=== PATIENT | female | born 1965 | race Caucasian/White ===

== ENCOUNTER → 2017-08-16 | Outpatient (CLI) | payer OTHER | LOC: FIMAGING 11:37 | PROVIDERS: ATTEND Internal Medicine Hematology & Oncology | DX: M25.551 Pain in right hip (principal); C81.90 Hodgkin lymphoma, unspecified, unspecified site; Z85.3 Personal history of malignant neoplasm of breast | CPT/HCPCS: 72080; 78306; A9503 ==

== ENCOUNTER 2019-01-30 18:19 | Inpatient (IN) | payer OTHER ==
[2019-01-30] MEDS ORDERED: ONDANSETRON 4 MG/2 ML VIAL IVP ONE (18:52)
[2019-01-30] MEDS ORDERED: IOPAMIDOL (ISOVUE 370) 100 ML BTL IV ONE (18:52)
--- NOTE | 2019-01-30 18:56 | EDPHY ---
H & P Stated Complaint: Recent subarachnoid bleed (01/27/19), increasing headache. Time Seen by Provider: 01/30/19 18:28 HPI/ROS: CHIEF COMPLAINT: Recurrent severe headache, recently diagnosed with non aneurysmal subarachnoid hemorrhage HISTORY OF PRESENT ILLNESS: The patient presents to the ED with recurrent severe headache that began several hours ago. The patient was diagnosed with a subarachnoid hemorrhage over the weekend while doing it bicycle race in [place]. She reportedly went to an emergency department had a CT and CT angiography which demonstrated subarachnoid hemorrhage without an aneurysmal source. The patient ultimately was discharged home with pain medications and advised to follow up when she returns to [place]. Today the patient was given a presentation when she developed recurrent severe headache with associated nausea. The patient denies any focal numbness or weakness. She currently rates her headache as a 6/10. She did take some morphine IR prior to arrival. The patient does not have a copy of the imaging studies performed in [place]. REVIEW OF SYSTEMS: A comprehensive 10 point review of systems is otherwise negative aside from elements mentioned in the history of present illness. Source: Patient Exam Limitations: No limitations - Personal History Current Tetanus Diphtheria and Acellular Pertussis (TDAP): Yes - Medical/Surgical History Hx Chronic Respiratory Disease: No Hx Diabetes: No Hx Cardiac Disease: No Hx Renal Disease: No Hx Cirrhosis: No Hx Alcoholism: No Hx HIV/AIDS: No Hx Splenectomy or Spleen Trauma: No Other PMH: Denies. - Social History Smoking Status: Never smoked - Physical Exam Exam: General Appearance: Alert, appears uncomfortable Eyes: Pupils equal and round no pallor or injection ENT, Mouth: Mucous membranes moist Respiratory: There are no retractions, lungs are clear to auscultation Cardiovascular: Regular rate and rhythm Gastrointestinal: Abdomen is soft and nontender, no masses, bowel sounds normal Neurological: 5/5 strength noted all 4 extremities, normal sensory exam, cranial nerves 2-12 intact Skin: Warm and dry, no rashes Musculoskeletal: Neck is supple nontender Extremities: symmetrical, full range of motion Psychiatric: Patient is oriented X 3, there is no agitation Constitutional: Initial Vital Signs Heart Rate 88 01/30/19 18:20 Respiratory Rate 16 01/30/19 18:20 Blood Pressure 154/93 H 01/30/19 18:20 O2 Sat (%) 95 01/30/19 18:20 O2 Delivery Mode Room Air Allergies/Adverse Reactions: No Known Allergies Allergy (Unverified 01/30/19 18:25) Home Medications: Medication Instructions Recorded Zofran 01/30/19 Medical Decision Making - Diagnostics Imaging Results: Imaging Impressions Head CT 01/30/19 18:42 Impression: 1. Small hyperdense material adjacent to the frontoparietal gyrus at the high convexity, possibly representing residual subarachnoid blood. 2. 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 3. Large right thyroid nodule measuring 2.3 cm. Recommend ultrasound characterization and possible FNA. 4. There is a left upper lobe nodule measuring 7.7 mm. In the absence of comparison imaging, per Fleischner criteria, recommend CT evaluation in 6 months. Stenoses are calculated using [place] Symptomatic Carotid Endarterectomy Trial (NASCET) criteria. Findings and recommendations discussed with Nuno Glasgow at 1941 hour, 01/30. Head CTA 01/30/19 18:42 Impression: 1. Small hyperdense material adjacent to the frontoparietal gyrus at the high convexity, possibly representing residual subarachnoid blood. 2. 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 3. Large right thyroid nodule measuring 2.3 cm. Recommend ultrasound characterization and possible FNA. 4. There is a left upper lobe nodule measuring 7.7 mm. In the absence of comparison imaging, per Fleischner criteria, recommend CT evaluation in 6 months. Stenoses are calculated using [place] Symptomatic Carotid Endarterectomy Trial (NASCET) criteria. Findings and recommendations discussed with Nuno Glasgow at 1941 hour, 01/30. Neck CTA 01/30/19 18:42 Impression: 1. Small hyperdense material adjacent to the frontoparietal gyrus at the high convexity, possibly representing residual subarachnoid blood. 2. 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 3. Large right thyroid nodule measuring 2.3 cm. Recommend ultrasound characterization and possible FNA. 4. There is a left upper lobe nodule measuring 7.7 mm. In the absence of comparison imaging, per Fleischner criteria, recommend CT evaluation in 6 months. Stenoses are calculated using [place] Symptomatic Carotid Endarterectomy Trial (NASCET) criteria. Findings and recommendations discussed with Nuno Glasgow at 1941 hour, 01/30. ED Course/Re-evaluation: The patient had an IV established. The patient received 4 mg of IV morphine. I did consult with Dr. Leyva from Neurosurgery who recommends repeat CT and CT angiography as we are unable to review any outside studies. The patient underwent a repeat CT scan which demonstrates some subarachnoid hemorrhage without an obvious aneurysmal source. The patient was evaluated by Dr. Leyva in the emergency department and will be admitted to the intensive care unit under their care. Possible formal angiography tomorrow. 8:00 p.m.: The patient received an additional 4 mg dose of morphine for ongoing headache. Differential Diagnosis: Differential diagnosis considered includes subarachnoid hemorrhage, meningitis, ruptured aneurysm Critical Care Time: Critical care time exclusive of procedures and exclusive of the PA's time was 35 minutes, performed by myself, Nuno Glasgow MD. Patient presents to the ED with a acute subarachnoid hemorrhage. The patient required emergent consultation with Neurosurgery. She was taken for stat imaging studies of her head and blood vessels. The patient was treated symptomatically in the emergency department. She will require admission to the intensive care unit. - Data Points Laboratory Results: 01/30/19 18:47 POC Hgb 16.0 gm/dL gm/dL (12.6-16.3) POC Hct 47 % % (38-47) POC Sodium 138 mEq/L mEq/L (135-145) POC Potassium 3.6 mEq/L mEq/L (3.3-5.0) POC Chloride 100 mEq/L mEq/L (97-110) POC Total CO2 25 mEq/L mEq/L (22-31) POC BUN 18 mg/dL mg/dL (7-23) POC Creatinine 1.1 mg/dL H mg/dL (0.6-1.0) POC Glucose 97 mg/dL mg/dL (70-100) Medications Given: Discontinued Medications Morphine Sulfate (Morphine) 4 mg IVP EDNOW ONE Stop: 01/30/19 18:52 Last Admin: 01/30/19 18:55 Dose: 4 mg Ondansetron HCl (Zofran) 4 mg IVP EDNOW ONE Stop: 01/30/19 18:53 Last Admin: 01/30/19 18:55 Dose: 4 mg Point of Care Test Results: Chemistry 01/30/19 18:47 POC Sodium 138 mEq/L mEq/L (135-145) POC Potassium 3.6 mEq/L mEq/L (3.3-5.0) POC Chloride 100 mEq/L mEq/L (97-110) POC Total CO2 25 mEq/L mEq/L (22-31) POC BUN 18 mg/dL mg/dL (7-23) POC Creatinine 1.1 mg/dL H mg/dL (0.6-1.0) POC Glucose 97 mg/dL mg/dL (70-100) ISTAT H&H 01/30/19 18:47 POC Hgb 16.0 gm/dL gm/dL (12.6-16.3) POC Hct 47 % % (38-47) Departure - Departure Disposition: [facility] Inpatient Acute Clinical Impression: Subarachnoid hemorrhage Condition: Fair
[2019-01-30] MEDS ORDERED: ONDANSETRON 4 MG/2 ML VIAL IVP PRN (19:50)
[2019-01-30] MEDS ORDERED: ONDANSETRON DISINTEGRATING 4 MG TAB PO PRN (19:50)
[2019-01-30 19:56] LABS: PLATELET COUNT 194 10^3/uL (150-400)
[2019-01-30] MEDS ORDERED: NS 1,000 ML IV SCH (20:00)
[2019-01-30 20:12] LABS: INR 0.95 (0.83-1.16); PROTIME(PATIENT) 12.3 SEC (12.0-15.0)
--- NOTE | 2019-01-30 21:22 | GHP ---
[f rep st] HISTORY AND PHYSICAL DATE OF ADMISSION: 01/30/2019 CHIEF COMPLAINT: Worst headache of life. HISTORY OF PRESENT ILLNESS: The patient is a pleasant 53-year-old female who presented to our emerge ncy room with a recurrent severe thunderclap-type headache. She was diagnosed with subarachnoid hemo rrhage after a similar incident in [place] while doing a bicycle race. Apparently, by her report, the neurosurgeon software applications architect there recommended a formal angiogram, but she was discharged and sent home and has been back at work. 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 A repeat head CT shows, very minimal, if any, cisternal subarachnoid hemorrhage, and a CTA to my read also loo ks pretty clean in terms of presence of aneurysms or arterial vascular malformations. She and her hu joryand are both happy to be admitted for treatment, pain control and an angiogram. I have discussed h er case with my partner, our cerebrovascular specialist, Dr. Wyatt Licona. PAST MEDICAL AND SURGICAL HISTORY: Per HPI; Hodgkin lymphoma, status post radiation, possibly causin g a secondary breast cancer that has also been treated. HOME MEDICATIONS: Zofran and immediate-release morphine. CODE STATUS: Full. ALLERGIES: None. SOCIAL HISTORY: Denies alcohol, tobacco, or drug abuse. FAMILY HISTORY: Denies knowledge of any acute hemorrhages, brain bleeds, connective tissue diseases in her family. REVIEW OF SYSTEMS: Ten points reviewed and negative. See HPI. PHYSICAL EXAMINATION: VITAL SIGNS: Heart rate 88, respiratory rate 16, blood pressure 154/93, satur ating 95% on room air. NEUROLOGIC: Awake, alert, oriented x3. Appears stated age, in no acute dist ress. Normal fluent speech. Normal cranial nerves. 5/5 strength. No pronator drift. Normal sensa tion. No abnormal reflexes and no cerebellar findings. Gait is deferred. LABS: White blood cell count 5.1, hemoglobin 15.1, platelet count 194. INR 0.95. Sodium 138, potas sium 3.6, BUN 18, creatinine 1.1, glucose 97. IMAGING: I reviewed the patient's CT of the head and CTA of the head. I agree with Radiology that t here may be a small hyperdense signal adjacent to the frontal parietal gyrus at the convexity and richard e mildly narrowed basilar artery luminal diameter. No obvious aneurysm or AVM. IMPRESSION AND PLAN: A 53-year-old female with acute-onset thunderclap worst headache of life x2 now within the past 5 days. Her imaging is not very impressive for an aneurysm, but she does need to be admitted for likely a formal angiogram. I spoke about her case with my partner, Dr. Wyatt Licona, colleen smyth is our cerebrovascular expert. He is tentatively planning an angiogram tomorrow. It is very poss ible that she could be dealing with reversible cerebral vasoconstriction syndrome and not true aneury smal subarachnoid hemorrhage. She is in good neurologic condition currently other than the fact that she has headaches and some nausea and some photophobia. I discussed this case with her and her husb and at length, and they were very appreciative of my recommendations. We will admit her and plan on further treatment with Dr. Licona tomorrow. /[id number]/MODL
[2019-01-31] MEDS: oxyCODONE IR 5 MG TAB PO PRN ×2 (04:19→13:32)
--- NOTE | 2019-01-31 06:25 | PDMN ---
Medical Necessity Medical necessity: [facility] [place]: M185 headaches: A-1 day: -Admission is indicated for 1 or more of the following: -symptomatic vascular malformation, -Cerebral bleeding, or vasospasm monitoring- further monitoring, eval and tx needed
--- NOTE | 2019-01-31 07:06 | NEUSURGPN ---
Assessment/Plan: Assessment: 53 yo female that is admitted to Dr Santana for "the worst headache of my life" with ?small amount of SAH noted. Plan: -?small amount of SAH seen on CT. No clear aneurysm seen on CTA -Dr Santana spoke with his partner Dr Licona about doing a cerebral angiogram later today -PT/OT/ST pending -neuro intact -Dr Licona to schedule a time later today -risks, need and benefits reviewed with the patient in detail -consents reviewed and signed -order placed for cerebral angiogram with Dr Licona -warning signs given -call with any questions or concerns -pt understands and agrees -NPO Subjective: Awake and alert. NAD. No new complaints or concerns. Pt with continued headache Objective: AAO x 3, PERRLA/EOMI No droop CN 2-12 grossly intact +lt touch 5/5 BUE/BLE = CDI Neuro Check Frequency: per routine Urinary Catheter in Place: No - Physician Discussed Patient with Dr.: Licona Patient Seen by : [facility] Neuro[facility] Physical Exam - Vitals, I&O, Labs I and O 01/30/19 01/31/19 02/01/19 05:59 05:59 05:59 Intake Total 100 Balance 100 Weight 70.307 kg Intake: Oral (ml) 100 Other: Number of Voids Toilet 2 Vital Signs Temp Pulse Resp BP Pulse Ox 36.8 C 82 18 97/56 L 92 01/31/19 04:14 01/31/19 04:14 01/31/19 04:14 01/31/19 04:14 01/31/19 04:14 ICD10 Worksheet Patient Problems: Problems Problem Status Onset Subarachnoid hemorrhage Acute
[2019-01-31] MEDS ORDERED: ALTEPLASE 2 MG VIAL IVP PRN (10:34)
[2019-01-31] MEDS ORDERED: GLUCAGON HCL 1 MG VIAL IVP PRN (10:34)
[2019-01-31] MEDS ORDERED: HEPARIN 10,000 UNIT/10 ML MDV (1,000 UNIT/ML) IVP PRN (10:34)
[2019-01-31] MEDS ORDERED: PROTAMINE SULFATE 50 MG/5 ML VIAL IVP PRN (10:34)
[2019-01-31] MEDS ORDERED: FLUMAZENIL 0.5 MG/5 ML MDV IVP PRN (10:34)
[2019-01-31] MEDS ORDERED: MEPERIDINE 25 MG/ML SYR IVP PRN (10:34)
[2019-01-31] MEDS ORDERED: MIDAZOLAM 2 MG/2 ML VIAL IVP PRN (10:34)
[2019-01-31] MEDS ORDERED: NALOXONE HCL 0.4 MG/ML INJ IVP PRN (10:34)
[2019-01-31] MEDS ORDERED: fentaNYL 100 MCG/2 ML INJ IVP PRN (10:34)
[2019-01-31] MEDS ORDERED: fentaNYL 100 MCG/2 ML INJ ONE (10:43)
[2019-01-31] MEDS ORDERED: MIDAZOLAM 2 MG/2 ML VIAL ONE (10:43)
[2019-01-31] MEDS ORDERED: FLUMAZENIL 0.5 MG/5 ML MDV IVP ONE (10:43)
[2019-01-31] MEDS ORDERED: NALOXONE HCL 0.4 MG/ML INJ ONE (10:44)
[2019-01-31] MEDS ORDERED: NS 1,000 ML IV SCH (10:45)
[2019-01-31] MEDS ORDERED: IOPAMIDOL (ISOVUE-300) 100 ML BTL ONE (12:18)
[2019-01-31] MEDS ORDERED: LIDOCAINE 1% 5 ML SDV ONE (12:19)
--- NOTE | 2019-01-31 12:27 | PDPROPOC ---
Sedation Plan of Care Sedation Plan of Care: vital signs stable, mental status noted, patient educated of risks, benefits, alternatives, patient can tolerate sedation ASA Classification: ASA 2 Planned drugs: fentanyl, midazolam Mallampati Score: Class 1 Mallampati Reference Image: Patient passed 3-3-2 rule?: Yes
--- NOTE | 2019-01-31 12:27 | PDHPUP ---
History & Physical Update H&P update statement: This history and physical update is based on an assessment of the patient which was completed after admission or registration (within 24 hours), but prior to the surgery/procedure. H&P update: H&P reviewed & patient examined, no change in patient's condition since H&P completed
--- NOTE | 2019-01-31 12:30 | PDCONSULT ---
[employer] Note: NEUROENDOVASCULAR resting well in PACU, no new events AAOx3, CNII-XII grossly normal strength full, no drift, sensation intact groin c/d/i, distal pulses palpable 53F with tiny cortical SAH and thunderclap headache, recurrent - angiogram shows subtle distal irregularities in bilateral CAR BRACER and MCA territories, suggestive of RCVS or spasm, more likely RCVS given very tiny amount of SAH - neurology consult for management - OK for regular diet - bedrest for 3 hours with right leg straight - will follow Livan
[2019-01-31] MEDS: ACETAMINOPHEN 325 MG TAB PO PRN (13:32)
--- NOTE | 2019-01-31 14:27 | ASMTCMCOM ---
CM Note CM Note Notes: Pt came to [facility] ED for increasing headache, was recently diagnosed with subarachnoid bleed. Pt to have cerebral angiogram today. Therapies have yet to be ordered. Pt resides with . CM to follow. D/c plan of care: TBD Date Signed: 01/31/2019 02:26 PM Electronically Signed By:ALEX Perez
--- NOTE | 2019-01-31 19:40 | GCON ---
[f rep st] CONSULTATION NEUROLOGIC CONSULTATION REFERRING PHYSICIAN: Wyatt Licona MD HISTORY: The patient is a 53-year-old woman whom I am asked to see in neurologic consultation regard ing thunderclap-type headache and clinical and radiographic suspicion for reversible cerebral vasocon strictive syndrome. The patient tells me historically that she has had a few episodes of expressive aphasia in her lifetime. One occurred many years ago and another occurred in December and resolved spon taneously without headache. She had an episode while she was in [place] and getting ready to go o n a long bike ride. She had had some nausea and vomiting during the day and continued throughout the date, but then she developed the worst headache of her life, consistent with a thunderclap-type head ache and went to an urgent care and was advised to go to a local hospital for more advanced evaluatio n, where she was found to have a small subarachnoid hemorrhage. She decided to come home the next da y, but then experienced a recurrence of virtually identical severe, thunderclap-type headache yesterd ay. As result, she has gone through extensive evaluations in which no aneurysm has been identified. Dr. Licona performed a cerebral angiogram today and did not find an aneurysm. His impression was thi s study was abnormal with some signs of vasoconstriction in the distal territories, predominantly inv olving bilateral posterior cerebral arteries and right middle cerebral artery, with more subtle samuel es in the left middle cerebral artery and bilateral anterior cerebral artery territories. As he desc ribed, there were no full cutoffs of blood flow, and the differential does include the cerebral vasoc onstriction syndrome versus vasculitis or other vasospastic phenomena. The patient had a head CT here yesterday in the evening. That study showed a small area of hyperdens e material in the frontoparietal gyrus and high convexity suggesting probable residual subarachnoid b lood. Thyroid nodule was seen as well. The patient still has some light sensitivity, which is a little better and has some fairly persistent headache, although not currently severe. MEDICATIONS: Include morphine as needed, oxycodone as needed, Tylenol. FAMILY HISTORY: Negative for any neurologic conditions such as this. 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 PAST MEDICAL HISTORY: She has a prior history of Hodgkin lymphoma when she was young and was treated with radiation and chemotherapy and then later in life developed breast cancer which has been treate d. No alcohol or drug use or smoking. PHYSICAL EXAM: VITAL SIGNS: Blood pressure has generally been stable, currently 128/90, pulse of 93 , respirations 20, temperature 36.9. NECK: Supple with no bruits or masses. CARDIAC: Regular rate and rhythm. No murmur. NEUROLOGIC: She has light sensitivity. Pupils are 2 mm and reactive. Ext raocular movements intact. Normal facial sensation and strength. Hearing is preserved. Motor exam, normal muscle bulk and tone, 5/5 strength with no abnormal movements. Sensation is normal throughou t. Reflexes 2+ and symmetric. IMPRESSION: I believe the patient most likely has reversible cerebral vasoconstrictive syndrome with fairly typical presentation and imaging findings. The patient may very well continue to fluctuate f or some time, but usually this will resolve, although recurrences and progression can occur. The juan francisco dence does not support mandatory use of calcium channel blockers or steroids, and it is generally rec ommended to monitor unless there is progression or other changes warranting more aggressive intervent ion. This is based on the literature described and reviewed and up to date, which I have reviewed in detail. Therefore, my recommendation is only pain medication for now and monitoring her clinical co urse. She is perfectly comfortable with that. I think she should remain in the hospital at least ov ernight to make sure she remains stable. It is interesting, she has described a few episodes of apha oniel in her lifetime with the most recent in December and that probably record rep represents a complex m igraine phenomena without actual headache. As to whether this is all linked is very hard to say. I am happy to follow up as an outpatient, depending on what occurs in the future, for any management st rategies that are non-neurosurgical. A total unit time of 70 minutes. /[id number]/MODL
[2019-02-01] MEDS: ACETAMINOPHEN 325 MG TAB PO PRN (06:18)
[2019-02-01 08:02] VITALS: BP 124/85
--- NOTE | 2019-02-01 08:17 | NEUROPROG ---
Assessment: Total unit time of 25 min. I spoke to the patient and her about the details of her working diagnosis of cerebral vasoconstrictive syndrome. As noted in the original consult, we do not have strong evidence for use of steroids or calcium channel blockers as truly being effective. Were she to be getting progressively worse, it would still be reasonable to do, but I would favor adding no additional medications and having her managed with Tylenol or narcotic medication in the short term if needed to control her headaches. She is hoping to go home today, which is fine with me if cleared by Neurosurgery and I am happy to follow up with her as an outpatient in the next month or so. Repeating a head CT and CT angiogram in about a month seems appropriate to me. We talked about gradual resumption of physical activity but no traveling out of the [place] over the next few months. Subjective: The patient is reporting headache which is fairly mild currently. The light and sound sensitivity is better. She rested fairly well. She has been able to start eating. Objective: Vital Signs Temp Pulse Resp BP Pulse Ox 36.8 C 90 16 124/85 H 95 02/01/19 07:59 02/01/19 07:59 02/01/19 07:59 02/01/19 07:59 02/01/19 07:59 01/31/19 02/01/19 02/02/19 05:59 05:59 05:59 Intake Total 100 350 Balance 100 350 PT 12.3 SEC (12.0-15.0) 01/30/19 18:41 INR 0.95 (0.83-1.16) 01/30/19 18:41 She is awake and alert but sitting in a darkened room and able to communicate effectively and smile with no neurologic deficits. Allergies/Adverse Reactions: No Known Allergies Allergy (Unverified 01/30/19 18:25)
--- NOTE | 2019-02-01 09:16 | NEUSURGPN ---
Assessment/Plan: 53 yo female with cortical SAH and thunderclap headache Angiogram done showing subtle distal irregularities in bilateral RECONCILIATION COORDINATOR and MCA territories, suggestive of RCVS or spasm, more likely RCVS given very tiny amount of SAH - neuro stable - headache controlled this morning with Tylenol - neurology has seen. Cerebral vasoconstrictive syndrome. No additional medications needed at this time and ok for discharge today - discharge home today with follow up as outpatient with neurology Discussed with Dr. Licona. Subjective: Headache manageable this morning. No nausea/vomiting. Objective: Awake. Alert. PERRL. EOMI Facial expression symmetrical Muscle strength full at 5/5 Sensation intact - Physician Discussed Patient with Dr.: Licona Neurosurgery Physical Exam - Vitals, I&O, Labs I and O 01/31/19 02/01/19 02/02/19 05:59 05:59 05:59 Intake Total 100 350 Balance 100 350 Weight 70.307 kg Intake: Oral (ml) 100 350 Other: Number of Voids Toilet 2 1 Vital Signs Temp Pulse Resp BP Pulse Ox 36.8 C 90 16 124/85 H 95 02/01/19 07:59 02/01/19 07:59 02/01/19 07:59 02/01/19 07:59 02/01/19 07:59 ICD10 Worksheet Patient Problems: Problems Problem Status Onset Subarachnoid hemorrhage Acute
--- NOTE | 2019-02-01 13:57 | ASMTLACE ---
LACE Length of stay for Answers: 3 days current admission Acuity / Level of Answers: Yes Care: Did the patient have an inpatient admission? Comorbidities - select Answers: Any tumor (including all that apply lymphoma or leukemia) # of Emergency department Answers: 1-2 visits in the last 6 months Score: 9 Date Signed: 02/01/2019 01:56 PM Electronically Signed By:ALEX Perez
--- NOTE | 2019-02-01 13:58 | ASMTCMCOM ---
CM Note CM Note Notes: Pt medically stable for d/c, pt did not require therapy evals according to RANJAN December who had no concerns. No CM d/c needs identified. Date Signed: 02/01/2019 01:57 PM Electronically Signed By:ALEX Perez
== END 2019-02-01 10:00 | disposition home or self-care (01) | DRG 69 ==
LOC: F3N 21:52
PROVIDERS: ADMIT Neurological Surgery; ATTEND Neurological Surgery
DX: I67.841 Reversible cerebrovascular vasoconstriction syndrome (principal); I60.9 Nontraumatic subarachnoid hemorrhage, unspecified; E04.1 Nontoxic single thyroid nodule; Z85.71 Personal history of Hodgkin lymphoma; Z85.3 Personal history of malignant neoplasm of breast
CPT/HCPCS: 82435-PO; 82565-PO; 82947-PO; 84132-PO; 84295-PO; 84520-PO; 85014-ER; 96374; C1760; C1769; C1894; J1644; J2250; J2270; J2310; J2405; J3010; Q9967

== ENCOUNTER → 2019-03-06 | Outpatient (CLI) | payer OTHER | LOC: FIMAGING 13:54 ==